=== PATIENT | female | born 1945 | race Caucasian/White ===

== ENCOUNTER → 2017-10-01 | Outpatient (CLI) | payer MEDICARE ==
[~2017-10-01] MED LIST: ASPIRIN 81MG TA81 MG PO; BACTRIM DS 8001 TAB PO; EFFEXOR75 MG PO; FLEXERIL10 MG PO; KEFLEX500 M1 PO; LEVOTHYROXIN0.075 M1 PO; LOSARTAN POTASS25 MG PO; METFORMIN500 MG PO; PRAVASTATIN 20M20 MG PO; URSODIOL300 M1 PO
[2017-10-01 11:35] LABS: BUN 13 mg/dL (7-18)
[2017-10-01 11:36] LABS: GFR (ESTIMATED) 62 ML/MIN (59-)
== END ==
LOC: LAB 10:55
PROVIDERS: Internal Medicine
DX: R07.9 Chest pain, unspecified (principal); I10 Essential (primary) hypertension; E11.42 Type 2 diabetes mellitus with diabetic polyneuropathy